=== PATIENT | male | born 1975 | race Caucasian/White ===

== ENCOUNTER 2019-08-17 21:45 | Emergency (ER) | payer OTHER ==
[~2019-08-17] VITALS: Ht 193 cm; Wt 122.7 kg
--- NOTE | 2019-08-17 22:00 | NUR ---
ROOM TEMP INCREASED AND WARMED BLANKETS APPLIED TO PT.
--- NOTE | 2019-08-17 22:10 | NUR ---
BS ULTRASOUND COMPLETED BY DR GUTIERREZ
[2019-08-17] MEDS ORDERED: normal saline 1000ML IV soln IVB ONE (22:15)
--- NOTE | 2019-08-17 22:20 | NUR ---
pt to ct scan via [facility] with [facility]
[2019-08-17 22:32] LABS: BASOPHILS % (AUTO) 0.2 % (0-1); EOSINOPHILS % (AUTO) 0.4 % (0-6); HEMOGLOBIN 15.1 g/dl (14.0-17.9); LYMPHOCYTES # (AUTO) 0.7 X10'3 (1.1-4.8); LYMPHOCYTES % (AUTO) 6.9 % (21-51); MEAN CORPUSCULAR HEMOGLOBIN 29.1 PG (27.0-31.0); MEAN CORPUSCULAR HGB CONC 33.6 g/dL (33.0-36.5); MEAN CORPUSCULAR VOLUME 86.7 FL (78-98); MONOCYTES # (AUTO) 0.6 X10'3 (0-0.9); MONOCYTES % (AUTO) 6.2 % (2-12); NEUTROPHILS # (AUTO) 8.2 X10'3 (1.8-7.7); NEUTROPHILS % (AUTO) 86.3 % (42-75); PLATELET COUNT 156 X10'3 (140-440); RED BLOOD COUNT 5.19 X10'6 (4.70-6.10); RED CELL DISTRIBUTION WIDTH 14.2 % (11.5-14.5); WHITE BLOOD COUNT 9.5 X10'3 (4.5-11.0)
--- NOTE | 2019-08-17 22:40 | NUR ---
back from ct scan in stable condition.
[2019-08-17 22:41] LABS: ALANINE AMINOTRANSFERASE 41 U/L (12-78); ALBUMIN/GLOBULIN RATIO 1.3 (1.1-1.5); ALKALINE PHOSPHATASE 72 IU/L (46-116); ANION GAP 7 (8-16); ASPARTATE AMINO TRANSFERASE 27 U/L (10-37); BILIRUBIN,TOTAL 0.4 MG/DL (0.1-1.0); BLOOD UREA NITROGEN 30 MG/DL (7-18); BUN/CREATININE RATIO 13.5 (5.4-32.0); CHLORIDE 107 MMOL/L (99-107); CREATININE 2.22 MG/DL (0.60-1.10); GLUCOSE 103 MG/DL (70-104); POTASSIUM 4.8 MMOL/L (3.5-5.1); SODIUM 143 MMOL/L (135-145); TOTAL CARBON DIOXIDE 28.7 MMOL/L (24-32); TOTAL PROTEIN 7.1 G/DL (6.4-8.2); eGFR 32 ML/MIN
[2019-08-17 22:42] LABS: PARTIAL THROMBOPLASTIN TIME 26 SECONDS (22-32)
[2019-08-17 22:45] LABS: ETHANOL < 0.010 GM/DL (0.0-0.010); TROPONIN I < 0.04 NG/ML (0.0-0.05)
--- NOTE | 2019-08-17 22:49 | NUR ---
xray of right arm completed.
[2019-08-17] MEDS ORDERED: LIDOcaine 1% W/epiNEPHrine 1:200,000 10ml vial IJ ONE (23:55)
[2019-08-17] MEDS ORDERED: TETanus/Pertussis (Acell)/Diphther VAC/PF (Tdap-Adult) 0.5ml syringe IMVAC ONE (23:55)
--- NOTE | 2019-08-18 00:03 | NUR ---
Trauma called off by MD Cody due to negative CT
[2019-08-18] MEDS ORDERED: HYDR-4383 PO (01:13)
[2019-08-18 01:29] LABS: URINE AMPHETAMINE SCREEN NEGATIVE (Neg); URINE BARBITUATE SCREEN NEGATIVE (Neg); URINE BENZODIAZEPINES SCREEN NEGATIVE (Neg); URINE CANNABINOID SCREEN NEGATIVE (Neg); URINE COCAINE SCREEN NEGATIVE (Neg); URINE METHADONE SCREEN NEGATIVE (Neg); URINE OPIATE SCREEN NEGATIVE (Neg); URINE PHENCYCLIDINE SCREEN NEGATIVE (Neg)
[2019-08-18 01:35] VITALS: BP 155/107
== END 2019-08-18 01:37 | disposition home or self-care (01) ==
LOC: ER 21:47
DX: S51.011A Laceration without foreign body of right elbow, initial encounter (principal); S70.212A Abrasion, left hip, initial encounter; S00.81XA Abrasion of other part of head, initial encounter; M54.5 Low back pain; F10.99 Alcohol use, unspecified with unspecified alcohol-induced disorder; R79.1 Abnormal coagulation profile; Z90.5 Acquired absence of kidney; Z79.899 Other long term (current) drug therapy; Z48.811 Encounter for surgical aftercare following surgery on the nervous system; X50.1XXA Overexertion from prolonged static or awkward postures, initial encounter; Y93.89 Activity, other specified; Y92.89 Other specified places as the place of occurrence of the external cause; Y99.8 Other external cause status; Y90.9 Presence of alcohol in blood, level not specified
CPT/HCPCS: 12001; 36415; 70450; 71250; 72125; 73060; 74176; 80053; 80305; 80320; 82948; 84484; 85025; 85610; 85730; 86885; 86900; 86901; 90471; 90715; 99284; J7030

== ENCOUNTER 2019-08-28 14:48 | Emergency (ER) | payer MEDICAID, OTHER ==
[~2019-08-28] VITALS: Ht 193 cm; Wt 121.8 kg
[~2019-08-28 14:48] MED LIST: HYDR-4383 PO
[2019-08-28 14:57] VITALS: BP 140/97
[2019-08-28] MEDS ORDERED: ketorolac trometh inj. 60 MG/2 ML VIAL IM ONE (17:25)
== END 2019-08-28 18:42 | disposition home or self-care (01) ==
LOC: ER 14:49
DX: M25.561 Pain in right knee (principal); M54.5 Low back pain; Z98.890 Other specified postprocedural states; Z90.89 Acquired absence of other organs; W18.30XA Fall on same level, unspecified, initial encounter; Y93.89 Activity, other specified; Y92.89 Other specified places as the place of occurrence of the external cause; Y99.9 Unspecified external cause status
CPT/HCPCS: 72100; 73564; 96372; 99284; J1885